=== PATIENT | male | born 1960 | race Two or more races ===

== ENCOUNTER 2017-04-03 12:35 | Emergency (ER) | payer OTHER ==
--- NOTE | ~2017-04-03 | US85 ---
[facility] A Service of [facility] RADIOLOGY TEXT RESULTS PATIENT: VISHNU TREVINO LOCATION: [facility] : 58 UNIT #: [id number] AGE: [address]: Indy Garcia SEX: M ORDER DR: [id number] [facility] [address] [place], [place] [address] [id number] E MR#: [id number] Acc #: [id number] NAME: VISHNU TREVINO : 1960 SEX: M STUDY DATE/TIME: 04/03/2017 12:53 UNIT: [facility] ROOM: STUDY DESCRIPTION: [facility] [employer] Attending Physician: Indy Garcia P.A.-C. Ordering Physician: Indy Garcia P.A.-C. Primary Care Physician: Julian Jimenez M.D. MEDICAL IMAGING REPORT This report is preliminary unless electronic signature is present EXAM Right leg vein Doppler 04/03/2017 INDICATION Right leg pain, lateral knee pain for 1 day. No trauma. TECHNIQUE Venous ultrasound examination of the right lower extremity was performed using grayscale, spectral Doppler and color flow Doppler imaging. FINDINGS The examination is negative. There is no evidence of right lower extremity deep venous thrombus from the groin to the lower calf. Visualized greater saphenous vein is also patent. IMPRESSION Negative examination. No evidence of right lower extremity deep venous thrombosis. Dictated by... Neptali Fontanez Jr., M.D. THIS IS AN ELECTRONICALLY VERIFIED REPORT Neptali Fontanez Jr., M.D. at 04/03/2017 7:03 PM DARYN/alison TD: 04/03/2017 13:55 JOB #: [id number] MEDICAL IMAGING REPORT Page 1 of 1 COPY
--- NOTE | ~2017-04-03 | CR173 ---
[facility] A Service of [facility] RADIOLOGY TEXT RESULTS PATIENT: VISHNU TREVINO LOCATION: [facility] : 58 UNIT #: [id number] AGE: [address]: Indy Garcia SEX: M ORDER DR: [id number] [facility] [address] [place], [place] [address] [id number] E MR#: [id number] Acc #: [id number] NAME: VISHNU TREVINO : 1960 SEX: M STUDY DATE/TIME: 04/03/2017 12:36 UNIT: [facility] ROOM: STUDY DESCRIPTION: CR Knee 3 Views Rt Attending Physician: Indy Garcia P.A.-C. Ordering Physician: Indy Garcia P.A.-C. Primary Care Physician: Julian Jimenez M.D. MEDICAL IMAGING REPORT This report is preliminary unless electronic signature is present EXAM Right knee 3 views 04/03/2017 1236 hours HISTORY 56-year-old man complaining of lateral knee pain since yesterday. No known injury. COMPARISON None. FINDINGS AP, lateral and sunrise views demonstrate no knee joint effusion or fracture. There is spurring at the patellofemoral compartment and at the lateral compartment. No fracture seen. IMPRESSION There is no joint effusion, fracture or loose body seen. There is spurring in the lateral and patellofemoral compartments without significant joint space loss. Dictated by... Makenzie Fuentes M.D. THIS IS AN ELECTRONICALLY VERIFIED REPORT Makenzie Fuentes M.D. at 04/03/2017 2:31 PM Stacy TD: 04/03/2017 13:40 JOB #: [id number] MEDICAL IMAGING REPORT Page 1 of 1 COPY
--- NOTE | ~2017-04-03 | CR21 ---
[facility] A Service of [facility] RADIOLOGY TEXT RESULTS PATIENT: VISHNU TREVINO LOCATION: [facility] : 58 UNIT #: [id number] AGE: [address]: Indy Garcia SEX: M ORDER DR: [id number] [id number] [facility] [place], [place] [address] [id number] E MR#: [id number] Acc #: [id number] NAME: VISHNU TREVINO : 1960 SEX: M STUDY DATE/TIME: 04/03/2017 11:58 UNIT: [facility] ROOM: STUDY DESCRIPTION: CR Ankle Min 3 Views Rt Attending Physician: Indy Garcia P.A.-C. Ordering Physician: Indy Garcia P.A.-C. Primary Care Physician: Julian Jimenez M.D. MEDICAL IMAGING REPORT This report is preliminary unless electronic signature is present EXAM Right ankle 3 views 04/03/2017 1158 hours HISTORY 2-day history of ankle pain and swelling. No reported injury. COMPARISON Right foot film 05/15/2016. No prior ankle film. FINDINGS AP, lateral and oblique views demonstrate no fracture, dislocation or degenerative change. IMPRESSION Negative right ankle. Dictated by... Makenzie Fuentes M.D. THIS IS AN ELECTRONICALLY VERIFIED REPORT Makenzie Fuentes M.D. at 04/03/2017 2:31 PM BOBYM/elizabethr TD: 04/03/2017 13:14 JOB #: [id number] MEDICAL IMAGING REPORT Page 1 of 1 COPY
[2017-04-03 12:16] LABS: BASOPHIL# 0.1 X10e3 (0-0.3); BASOPHIL% 1.1 % (0-2.5); EOSINOPHIL# 0.2 X10e3 (0-0.7); EOSINOPHIL% 1.8 % (0.0-7.0); HEMATOCRIT 46.2 % (38.0-50.0); HEMOGLOBIN 15.2 gm/dL (13.0-16.0); LYMPHOCYTE# 2.2 X10e3 (1.0-3.5); LYMPHOCYTE% 23.8 % (17.0-45.0); MEAN CELL VOLUME 78.3 FL (83-96); MEAN CORPUSCULAR HEMOGLOBIN 25.7 PG (28-34); MEAN CORPUSCULAR HGB CONC 32.8 g/dL (30-36); MEAN PLATELET VOLUME 9.4 FL (6.5-11.5); MONOCYTE# 0.8 X10e3 (0-1.0); MONOCYTE% 8.6 % (3.0-12.0); NEUTROPHIL% 64.7 % (40-75); PLATELET COUNT 181 X10e3 (140-420); RED CELL DISTRIBUTION WIDTH 14.3 % (11.0-15.5); WHITE BLOOD COUNT 9.2 X10e3 (4.0-10.5)
[2017-04-03 12:19] LABS: DIFF IND NO
[~2017-04-03 12:35] MED LIST: CLARITIN10 M3 PO; DIAZEPAM PO; FLEXERIL10 MG PO; FLOMAX0.4 M1 PO; IBUPROFEN800 MG PO; LORTAB 5/500 TA1 TA1 PO; NAPROXEN PO; PERCOCET 5-3251 TAB PO; PRAVASTATIN SOD20 MG PO; PREDNISONE10 MG/DOSE PO; VALIUM10 MG PO; VOLTAREN75 MG PO
[2017-04-03 12:49] LABS: BUN/CREATININE RATIO 16.25; CALCIUM SERUM 9.6 mg/dL (8.4-10.2); CREATININE SERUM 0.8 mg/dL (0.6-1.4); GLOM FILT RATE Estimated 99.2 mL/min (>60); POTASSIUM 4.2 mmol/L (3.5-5.1)
== END 2017-04-03 13:20 | disposition home or self-care (01) ==
LOC: CFTX 12:35
PROVIDERS: Physician Assistant
DX: M25.561 Pain in right knee (principal); I10 Essential (primary) hypertension; E78.5 Hyperlipidemia, unspecified; Z91.041 Radiographic dye allergy status; Z98.890 Other specified postprocedural states
CPT/HCPCS: 36415; 73562; 73610; 80048; 85025; 86140; 93971; 99284

== ENCOUNTER 2017-04-04 02:45 | Emergency (ER) | payer OTHER | END 2017-04-04 02:50 | disposition home or self-care (01) | LOC: CED 02:45 | DX: M79.604 Pain in right leg (principal); I10 Essential (primary) hypertension; Z91.041 Radiographic dye allergy status | CPT/HCPCS: 96372; 99283; J2270 ==

== ENCOUNTER 2017-04-19 19:55 | Emergency (ER) | payer OTHER ==
--- NOTE | ~2017-04-19 | CT4 ---
[facility] A Service of [facility] RADIOLOGY TEXT RESULTS PATIENT: VISHNU TREVINO LOCATION: [facility] : 58 UNIT #: [id number] AGE: [address]: Ole Ramirez MD SEX: M ORDER DR: [id number] [id number] [facility] [place], [place] [address] [id number] E MR#: [id number] Acc #: [id number] NAME: VISHNU TREVINO : 1960 SEX: M STUDY DATE/TIME: 04/19/2017 23:30 UNIT: [facility] ROOM: STUDY DESCRIPTION: CT Abd and Pelv Wo Cont Attending Physician: Ole Ramirez M.D. Ordering Physician: Ole Ramirez M.D. Primary Care Physician: Julian Jimenez M.D. MEDICAL IMAGING REPORT This report is preliminary unless electronic signature is present EXAM CT abdomen and pelvis INDICATIONS Lower abdominal pain and hematuria for [address] of the abdomen and pelvis without contrast. Coronal and sagittal reconstructions were obtained. This CT exam was performed with one or more of the following radiation dose reduction techniques: automatic control, adjustment of mA and/or kV according to patient size, and iterative reconstruction. COMPARISON CT abdomen and pelvis dated 09/22/2016. FINDINGS ABDOMEN: There is some mild atelectasis in the lung bases. No urinary calculi. No hydronephrosis. Noncontrast evaluation of the remaining solid abdominal organs are within normal limits. Gallbladder is not distended. The bowel is not dilated. There is a small umbilical hernia. The appendix is normal. The abdominal aorta is normal in caliber. PELVIS: There has been prior bilateral inguinal hernia repair. The bladder is unremarkable. No enlarged pelvic or inguinal lymph nodes. IMPRESSION 1. No acute findings in the abdomen or pelvis to account for the [facility] A Service of [facility] RADIOLOGY TEXT RESULTS PATIENT: VISHNU TREVINO LOCATION: [facility] : 58 UNIT #: [id number] AGE: [address]: Ole Ramirez MD SEX: M ORDER DR: patient's symptoms. 2. Small umbilical hernia. 3. Prior inguinal hernia repair. Bilateral inguinal hernia repair. Dictated by... Mars Mcfarland M.D. THIS IS AN ELECTRONICALLY VERIFIED REPORT Mars Mcfarland M.D. at 04/20/2017 2:47 AM ISMAEL/milagro TD: 04/20/2017 00:58 JOB #: [id number] MEDICAL IMAGING REPORT Page 1 of 1 COPY
[2017-04-19 20:50] LABS: BASOPHIL# 0.1 X10e3 (0-0.3); BASOPHIL% 0.8 % (0-2.5); EOSINOPHIL# 0.2 X10e3 (0-0.7); EOSINOPHIL% 1.6 % (0.0-7.0); HEMATOCRIT 41.6 % (38.0-50.0); HEMOGLOBIN 13.8 gm/dL (13.0-16.0); LYMPHOCYTE# 2.8 X10e3 (1.0-3.5); LYMPHOCYTE% 27.4 % (17.0-45.0); MEAN CELL VOLUME 77.1 FL (83-96); MEAN CORPUSCULAR HEMOGLOBIN 25.6 PG (28-34); MEAN CORPUSCULAR HGB CONC 33.2 g/dL (30-36); MEAN PLATELET VOLUME 9.1 FL (6.5-11.5); MONOCYTE# 0.9 X10e3 (0-1.0); MONOCYTE% 9.3 % (3.0-12.0); NEUTROPHIL# 6.2 X10e3 (1.5-7.1); NEUTROPHIL% 60.9 % (40-75); PLATELET COUNT 151 X10e3 (140-420); RED CELL DISTRIBUTION WIDTH 14.2 % (11.0-15.5); WHITE BLOOD COUNT 10.2 X10e3 (4.0-10.5)
[2017-04-19 20:51] LABS: DIFF IND NO
[2017-04-19 21:19] LABS: ALBUMIN SERUM 3.6 g/dL (3.5-5.0); BILIRUBIN, DIRECT 0.1 mg/dL (0.0-0.2); BILIRUBIN,INDIRECT 0.5 mg/dL (0.0-0.9); BILIRUBIN,TOTAL 0.6 mg/dL (0.2-2.0); CALCIUM SERUM 8.7 mg/dL (8.4-10.2); CREATININE SERUM 0.9 mg/dL (0.6-1.4); GLOM FILT RATE Estimated 94.5 mL/min (>60); PROTEIN TOTAL SERUM 6.5 g/dL (6.0-8.3)
[2017-04-19 22:30] LABS: URINE SOURCE CLEAN CATCH
[2017-04-19 22:35] LABS: URINE APPEARANCE CLEAR; URINE BILIRUBIN NEG (NEG); URINE BLOOD 1+ (NEG); URINE COLOR YELLOW; URINE GLUCOSE NEG (NEG); URINE KETONE TRACE (NEG); URINE LEUKOCYTE ESTERASE NEG (NEG); URINE NITRATE NEG (NEG); URINE PROTEIN NEG (NEG); URINE SPECIFIC GRAVITY 1.029 (1.003-1.035); URINE UROBILINOGEN 0.2 MG/DL (NEG)
[2017-04-19 22:38] LABS: URINE BACTERIA AUWI NEG (NEGATIVE); URINE SQUAMOUS EPITHELIAL CELL NONE SEEN /[HPF]; UWBCS1 AUWI 0-2 (0-5)
[2017-04-19 22:46] LABS: CULTURE INDICATED? NO
== END 2017-04-20 00:58 | disposition home or self-care (01) ==
LOC: CED 19:55
PROVIDERS: Emergency Medicine
DX: R10.9 Unspecified abdominal pain (principal); I10 Essential (primary) hypertension; F17.210 Nicotine dependence, cigarettes, uncomplicated; E78.00 Pure hypercholesterolemia, unspecified; Z91.041 Radiographic dye allergy status
CPT/HCPCS: 36415; 74176; 80048; 80076; 81003; 82150; 83690; 85025; 99284; J1885

== ENCOUNTER 2017-08-10 05:40 | Emergency (ER) | payer OTHER ==
--- NOTE | ~2017-08-10 | CR63 ---
[facility] A Service of [facility] RADIOLOGY TEXT RESULTS PATIENT: VISHNU TREVINO LOCATION: [facility] : 58 UNIT #: [id number] AGE: [address]: Neptali Garcia MD SEX: M ORDER DR: [id number] [id number] [place], [place] [address] [id number] E MR#: [id number] Acc #: [id number] NAME: VISHNU TREVINO : 1960 SEX: M STUDY DATE/TIME: 08/10/2017 6:57 UNIT: [facility] ROOM: STUDY DESCRIPTION: CR Chest 2 View Attending Physician: Neptali Garcia M.D. Ordering Physician: Neptali Garcia M.D. Primary Care Physician: Julian Jimenez M.D. MEDICAL IMAGING REPORT This report is preliminary unless electronic signature is present EXAM PA and lateral chest radiograph INDICATION Shortness of breath, cough and sore throat for 3 weeks. This has been worsening. FINDINGS Comparison made to prior exam from November 25, 2014. Heart size is within normal limits. I do think the patient has some mild interstitial prominence, particularly within a perihilar distribution. Finding is nonspecific but can be seen in the setting of viral pneumonia and reactive airways disease. No pneumothorax or pleural effusion is seen and no focal alveolar consolidation is identified. 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 IMPRESSION Interstitial prominence particularly within the perihilar distribution. FINDINGS Nonspecific but can be seen in the setting of both reactive airways disease and viral pneumonia. Dictated by... Cary Drew M.D. THIS IS AN ELECTRONICALLY VERIFIED REPORT Cary Drew M.D. at 08/11/2017 5:02 PM AFF/df TD: 08/11/2017 09:14 JOB #: [id number] [facility] A Service of [facility] RADIOLOGY TEXT RESULTS PATIENT: VISHNU TREVINO [facility] #: [id number] : 58 UNIT #: [id number] AGE: [address]: Neptali Garcia MD SEX: M ORDER DR: MEDICAL IMAGING REPORT Page 1 of 1 COPY
== END 2017-08-10 08:45 | disposition home or self-care (01) ==
LOC: CED 05:40
DX: J06.9 Acute upper respiratory infection, unspecified (principal); I10 Essential (primary) hypertension
CPT/HCPCS: 71020; 99283